=== PATIENT | male | born 1965 | race Caucasian/White ===

== ENCOUNTER 2016-08-06 13:08 | Emergency (ER) | payer MEDICARE ==
[~2016-08-06] VITALS: Ht 175.3 cm; Wt 47.6 kg
[~2016-08-06 13:08] MED LIST: ALBU2.5V5 NEB; ALPR0.25 PO; DOXY100T PO; Doxycycline Hyclate PO; ENOX60DI SQ; GUAI-42 PO; IPRA4AER IH; NICO1PAT5 TD; OXYC30TA21 PO; PRED5TAB19 PO; WARF7.5T6 PO
[2016-08-06] MEDS ORDERED: IV NORMAL SALINE 1000ML BAG 1,000 ML IV SCH (14:29)
[2016-08-06 14:38] LABS: BASO % 0 % (0-3); EOS % 1 % (0-3); HEMATOCRIT 29.5 % (39.0-53.0); HEMOGLOBIN 9.6 g/dL (13.0-17.5); LYMPH # 0.5 x10^3/uL (1.0-4.8); LYMPH % 11 % (24-48); MEAN CORPUSCULAR HEMOGLOBIN 30 pg (25-35); MEAN CORPUSCULAR HGB CONC 33 g/dL (31-37); MEAN CORPUSCULAR VOLUME 93 fL (79-100); MONO % 9 % (0-9); NEUT % 79 % (31-73); PLATELET COUNT 238 x10^3/uL (140-400); RED BLOOD COUNT 3.15 x10^6/uL (4.30-5.70); RED CELL DISTRIBUTION WIDTH 16.4 % (11.5-14.5); WHITE BLOOD COUNT 4.3 x10^3/uL (4.0-11.0)
[2016-08-06 14:48] LABS: CALCIUM 9.3 mg/dL (8.5-10.1); CREATININE 0.7 mg/dL (0.7-1.3); GFR 119.4; POTASSIUM 4.5 mmol/L (3.5-5.1)
[2016-08-06 14:54] LABS: ALBUMIN 3.4 g/dL (3.4-5.0); ALBUMIN/GLOBULIN RATIO 0.9 (1.0-1.7); TOTAL BILIRUBIN 0.2 mg/dL (0.2-1.0); TOTAL PROTEIN 7.3 g/dL (6.4-8.2)
[2016-08-06 15:01] LABS: CKMB MASS < 0.5 ng/mL (0.0-3.6); CREATINE KINASE 41 U/L (39-308)
[2016-08-06] MEDS ORDERED: IOHEXOL 300 MG/ML 75 ML VIAL IV ONE (15:15)
[2016-08-06] MEDS ORDERED: CONTRAST GIVEN MC PRN (15:15)
--- NOTE | 2016-08-06 16:08 | RAD ---
Indication shortness of breath. History of pulmonary embolus. Contrast imaging through the chest was performed. Approximately 75 cc of Omnipaque 300 was administered. The examination was tailored for the detection of pulmonary embolus. Note is made of a previous exam 12/05/2014. MIP images were generated and reviewed. Imaging through the upper abdomen is unremarkable. The thoracic aorta appears unremarkable. There is no significant mediastinal or hilar adenopathy. The study is negative for pulmonary embolus. Marked emphysematous changes are noted. Multiple large blebs or bulla are seen. An acute parenchymal infiltrate is not seen. A dominant soft tissue mass in the chest is not seen. A significant change when compared to the prior study is not seen. IMPRESSION: No acute finding. Negative study for pulmonary embolus. Severe underlying emphysematous changes. PQRS Compliance Statement: One or more of the following individualized dose reduction techniques were utilized for this examination: 1. Automated exposure control 2. Adjustment of the mA and/or kV according to patient size 3. Use of iterative reconstruction technique
--- NOTE | 2016-08-06 16:14 | EKG ---
[facility] [address] [place] [address] Test Date: 2016-08-06 Test Time: 13:36:17 Pat Name: ANNABELLE MORALES Department: Room: Gender: M Training Personnel Supervisor: : 1965 Requested By: ROBBY MCCORMICK Order Number: [id number] Reading MD: Rylie Hopper Measurements Intervals [place] Rate: 96 P: 80 ME: 176 QRS: 90 QRSD: 94 T: 66 QT: 328 QTc: 415 Interpretive Statements SINUS RHYTHM NORMAL EKG Electronically Signed On 08-09-2016 20:41:44 CDT by Rylie Hopper
--- NOTE | 2016-08-06 18:01 | PHYS DOC ---
Past Medical History Past Medical History: Anxiety, COPD, Other Additional Past Medical Histor: alpha 1 deficiency, emphysema,PE, pneumo x7, pleurisy Past Surgical History: Other Additional Past Surgical Histo: 2 lung surgeries Alcohol Use: None Drug Use: None Adult General Chief Complaint Chief Complaint: SHORTNESS OF BREATH HPI HPI Patient is a 51 year old male who presents with shortness of breath. Pt is poor historian because sleepy in ER. Pt admits to taking his xanax and oxycodone prior to coming to ER. Pt states was arguing with sister who pt lives with and then became short of breath so a "friend" brought pt to ER. Pt very sleepy during history and physicial and having to keep waking put up. Pt states he has "chronic" pain in chest on L lower side. Pt states he wear home O2 all the time and usually 6-8 liters. But per not from sister pt at times is not compliant with oxygen and will take off and saturation can go into the 70's. Pt admits to slight cough, no hemoptysis. Pt denies injury. Currently pt denies pain. Pt states he is worried that the shortness of breath could be from pneumothorax or PE as pt states he has had both in past. Pt on Lovenox at home but admits to missing doses at time. NO vomiting , no diarrhea, no melena Review of Systems Review of Systems Constitutional: Denies fever or chills [] Eyes: Denies change in visual acuity, redness, or eye pain [] HENT: Denies nasal congestion or sore throat [] Respiratory: yes-- cough or shortness of breath [] Cardiovascular: No additional information not addressed in HPI [] GI: Denies abdominal pain, nausea, vomiting, bloody stools or diarrhea [] : Denies dysuria or hematuria [] Musculoskeletal: Denies back pain or joint pain [] Integument: Denies rash or skin lesions [] Neurologic: Denies headache, focal weakness or sensory changes [] Current Medications Current Medications Current Medications Medications (Trade) Dose Ordered Sig/Denise Start Time Stop Time Status Last Admin Dose Admin Info (Do NOT chart on this entry -- for MONITORING) 1 each PRN DAILY PRN 08/06/16 15:15 08/06/16 19:48 DC Iohexol (Omnipaque 300 Mg/ml) 75 ml 1X ONCE 08/06/16 15:15 08/06/16 15:16 DC Sodium Chloride 1,000 ml @ 1,000 mls/hr Q1H 08/06/16 14:29 08/06/16 15:28 DC 08/06/16 14:40 1,000 MLS/HR Allergies Allergies Allergies Coded Allergies Type Severity Reaction Last Updated Verified budesonide Allergy Severe "I stop breathing" 09/09/13 Yes fluticasone Allergy Severe "I stop breathing" 09/09/13 Yes formoterol Allergy Severe "I stop breathing" 09/09/13 Yes salmeterol Allergy Severe "I stop breathing" 09/09/13 Yes Physical Exam Physical Exam Constitutional: cachectic, sleeping , easily arousable but falls asleep quickly HENT: Normocephalic, atraumatic, bilateral external ears normal, oropharynx moist, no oral exudates, nose normal. [] Eyes: PERRLA, conjunctiva normal, no discharge. [] Neck: Normal range of motion, no tenderness, supple, no stridor. [] Cardiovascular:Heart rate regular rhythm, no murmur [] Lungs & Thorax: Bilateral breath sounds clear to auscultation [] Abdomen: Bowel sounds normal, soft, no tenderness, no masses, no pulsatile masses. [] Skin: Warm, dry, no erythema, no rash. [] Back: No tenderness, no CVA tenderness. [] Extremities: No tenderness, no cyanosis, no clubbing, ROM intact, no edema. [] Neurologic: Alert and oriented X 3, normal motor function, normal sensory function, no focal deficits noted. [] ] Current Patient Data Vital Signs Vital Signs Date Time Temp Pulse Resp B/P (MAP) Pulse Ox O2 Delivery O2 Flow Rate FiO2 08/06/16 18:26 90 9 109/68 (82) 100 08/06/16 13:55 Nasal Cannula 4.0 08/06/16 13:28 98.7 98.7 Lab Values Laboratory Tests Test 08/06/16 14:08 08/06/16 17:27 White Blood Count 4.3 x10^3/uL (4.0-11.0) Red Blood Count 3.15 x10^6/uL (4.30-5.70) L Hemoglobin 9.6 g/dL (13.0-17.5) L Hematocrit 29.5 % (39.0-53.0) L Mean Corpuscular Volume 93 fL (79-100) Mean Corpuscular Hemoglobin 30 pg (25-35) Mean Corpuscular Hemoglobin Concent 33 g/dL (31-37) Red Cell Distribution Width 16.4 % (11.5-14.5) H Platelet Count 238 x10^3/uL (140-400) Neutrophils (%) (Auto) 79 % (31-73) H Lymphocytes (%) (Auto) 11 % (24-48) L Monocytes (%) (Auto) 9 % (0-9) Eosinophils (%) (Auto) 1 % (0-3) Basophils (%) (Auto) 0 % (0-3) Neutrophils # (Auto) 3.4 x10^3uL (1.8-7.7) Lymphocytes # (Auto) 0.5 x10^3/uL (1.0-4.8) L Monocytes # (Auto) 0.4 x10^3/uL (0.0-1.1) Eosinophils # (Auto) 0.0 x10^3/uL (0.0-0.7) Basophils # (Auto) 0.0 x10^3/uL (0.0-0.2) Sodium Level 138 mmol/L (136-145) Potassium Level 4.5 mmol/L (3.5-5.1) Chloride Level 98 mmol/L (98-107) Carbon Dioxide Level 33 mmol/L (21-32) H Anion Gap 7 (6-14) Blood Urea Nitrogen 13 mg/dL (8-26) Creatinine 0.7 mg/dL (0.7-1.3) Estimated GFR (Cockcroft-Gault) 119.4 BUN/Creatinine Ratio 19 (6-20) Glucose Level 121 mg/dL (70-99) H Calcium Level 9.3 mg/dL (8.5-10.1) Total Bilirubin 0.2 mg/dL (0.2-1.0) Aspartate Amino Transferase (AST) 11 U/L (15-37) L Alanine Aminotransferase (ALT) 19 U/L (16-63) Alkaline Phosphatase 43 U/L (46-116) L Creatine Kinase 41 U/L (39-308) Creatine Kinase MB (Mass) < 0.5 ng/mL (0.0-3.6) Creatine Kinase MB Relative Index % (0-4) Troponin I Quantitative < 0.017 ng/mL (0.000-0.055) < 0.017 ng/mL (0.000-0.055) MH-Lzt-L-Type Natriuretic Peptide 101 pg/mL (0-124) Total Protein 7.3 g/dL (6.4-8.2) Albumin 3.4 g/dL (3.4-5.0) Albumin/Globulin Ratio 0.9 (1.0-1.7) L Laboratory Tests 08/06/16 14:08 Laboratory Tests 08/06/16 14:08 EKG EKG ekg---1342 sinus rhythm no STEMI, rate 96[] Radiology/Procedures Radiology/Procedures PATIENT: ANNABELLE MORALES ACCOUNT: [id number] : 1965 LOCATION: ER AGE: 51 SEX: M EXAM STATUS: REG ER ORD. PHYSICIAN: ROBBY MCCORMICK MD REASON: chest pain, hx PE, hx pneumothorax, hx copd PROCEDURE: CT ANGIOGRAPHY CHEST Indication shortness of breath. History of pulmonary embolus. Contrast imaging through the chest was performed. Approximately 75 cc of Omnipaque 300 was administered. The examination was tailored for the detection of pulmonary embolus. Note is made of a previous exam 12/05/2014. MIP images were generated and reviewed. Imaging through the upper abdomen is unremarkable. The thoracic aorta appears unremarkable. There is no significant mediastinal or hilar adenopathy. The study is negative for pulmonary embolus. Marked emphysematous changes are noted. Multiple large blebs or bulla are seen. An acute parenchymal infiltrate is not seen. A dominant soft tissue mass in the chest is not seen. A significant change when compared to the prior study is not seen. IMPRESSION: No acute finding. Negative study for pulmonary embolus. Severe underlying emphysematous changes. PQRS Compliance Statement: One or more of the following individualized dose reduction techniques were utilized for this examination: 1. Automated exposure control 2. Adjustment of the mA and/or kV according to patient size 3. Use of iterative reconstruction technique DICTATED and SIGNED BY: DILLON ROBLES MD DATE: 08/06/16 0220 CC: ROBBY MCCORMICK MD; NO PCP ~ [] Impressions: 1. Dyspnea 2. Hx severe COPD Course & Med Decision Making Course & Med Decision Making Pertinent Labs and Imaging studies reviewed. (See chart for details) [] Dragon Disclaimer Dragon Disclaimer This electronic medical record was generated, in whole or in part, using a voice recognition dictation system. Departure Departure Impression: Primary Impression: Dyspnea, unspecified Additional Impression: COPD (chronic obstructive pulmonary disease) Disposition: 01 HOME, SELF-CARE Condition: STABLE Referrals: NO PCP (PCP) Problem Qualifiers ROBBY MCCORMICK MD August 06, 2016 18:01
[2016-08-06 18:26] VITALS: BP 109/68
== END 2016-08-06 19:48 | disposition home or self-care (01) ==
LOC: ER 13:08
DX: J44.9 Chronic obstructive pulmonary disease, unspecified (principal); F41.9 Anxiety disorder, unspecified; G89.29 Other chronic pain; Z86.711 Personal history of pulmonary embolism; Z88.8 Allergy status to other drugs, medicaments and biological substances; Z99.81 Dependence on supplemental oxygen
CPT/HCPCS: 36415; 71275; 80053; 82553; 83880; 84484; 85027; 93005; 96360; 99285; J7030